=== PATIENT | female | born 1950 | race Caucasian/White ===

== ENCOUNTER 2017-05-10 11:47 | Day surgery (SDC) | payer OTHER ==
[~2017-05-10 11:47] MED LIST: 1-ME1LIQ PO; ACIDOPHILUS PO; AMBI10TA PO; ASPI81TA11 OR; BUPR150T3 PO; CLOP75 PO; CYCL-36 PO; EZET10 PO; HYDR-2768 PO; LEVO100T60 PO; LISI-363 PO; LOTR10CA PO; PERC10TA26 PO; PLAV75TA OR; PROT40TA PO; TRAZ100 PO; XANA0.5T PO
[2017-05-10] MEDS ORDERED: LEVE500T8 PO (12:41)
[2017-05-10] MEDS ORDERED: GABA300C5 PO (12:41)
[2017-05-10] MEDS ORDERED: LEVO100T5 PO (12:41)
[2017-05-10] MEDS ORDERED: NITR1SUB3 SL (12:41)
[2017-05-10] MEDS ORDERED: RANI1TAB5 PO (12:41)
[2017-05-10] MEDS ORDERED: CYCL10TA PO (12:41)
[2017-05-10] MEDS ORDERED: PANT40TA3 PO (12:41)
[2017-05-10] MEDS ORDERED: BUPR300T PO (12:41)
[2017-05-10] MEDS ORDERED: LISI30TA4 PO (12:41)
[2017-05-10] MEDS ORDERED: SERO100T PO (12:41)
[2017-05-10] MEDS ORDERED: ATOR20TA15 PO (12:41)
[2017-05-10] MEDS ORDERED: FLUO40CA PO (12:41)
[2017-05-10] MEDS ORDERED: ceFAZolin 2 GM PREMIX 50 ML IV SCH (13:30)
[2017-05-10] MEDS ORDERED: VANCOMYCIN 1000 MG/NS 250 ML IV SCH ×2 (13:30)
[2017-05-10] MEDS ORDERED: POVIDONE IODINE 5% (ANTISEPSIS KIT) 4 APPLICATIONS EACH NARE SCH (13:30)
[2017-05-10] MEDS ORDERED: MUPIROCIN 2% OINT 1 APPLIC/GM SYR NASAL SCH (13:30)
[2017-05-10] MEDS ORDERED: CHLORHEXIDINE GLUCONATE 2 % 1 PACK (2 CLOTHS) TOPICAL SCH (13:30)
[2017-05-10] MEDS ORDERED: MIDAZOLAM HCL 5 MG/ML VIAL (1 ML) ONE (14:46)
--- NOTE | 2017-05-14 08:08 | MP ---
cc: KAYLEIGH COUGHLIN M.D. DATE OF SURGERY 05/13/2017 INDICATIONS FOR PROCEDURE Mrs. So is a 66-year-old female with recurrent episodes of syncope, head trauma, fell in the bathroom. Neurological examination was negative, referred for loop recorder insertion. The risks, the nature and the benefit of the procedure are clearly stated to her. The risks include pneumothorax, infection and even . The patient understood and agreed to proceed. PROCEDURE After written informed consent was obtained, the patient was prepped in the usual sterile fashion. Conscious sedation was initiated and maintained throughout the procedure using intravenous Versed and Ventolin. Once sedation was verified, the left parasternal area was anesthetized with 2% Xylocaine. Using the cautery, less than a 1-cm incision was made. Then the loop was inserted under the skin. After adequate sensing obtained, the border was reapproximated using Dermabond and Steri-Strips. No incident reported. The patient tolerated the procedure, blood loss minimal. 1. IMPLANTED HARDWARE: The implanted loop recorder is a [employer] model number LNQ11, serial number [id number]. 2. SENSING: Sensing at 0.22 mV. 3. SETTINGS: The device set rupa under 40, tachy over 150. CONCLUSION Successful loop insertion. COMMENT AND RECOMMENDATIONS The patient is going to be transferred to the telemetry unit. He will be observed, can be discharged home later today. Kayleigh Coughlin MD HS/SSB /3:40 PM /7:58 AM
== END 2017-05-10 16:00 | disposition home or self-care (01) ==
LOC: HDOC 11:47 → HDIC 11:48 → HDOC 16:00
PROVIDERS: ATTEND Internal Medicine Interventional Cardiology
DX: R55 Syncope and collapse (principal); S09.90XA Unspecified injury of head, initial encounter; Y92.89 Other specified places as the place of occurrence of the external cause; I07.1 Rheumatic tricuspid insufficiency; I25.10 Atherosclerotic heart disease of native coronary artery without angina pectoris; I11.9 Hypertensive heart disease without heart failure; M79.7 Fibromyalgia; Z72.0 Tobacco use
CPT/HCPCS: 33282; 99152; C1764; J0690; J2250; J3010

== ENCOUNTER 2017-12-04 05:17 | Observation (INO) ==
--- NOTE | 2017-12-03 13:40 | MH ---
cc: Caesar Naqvi MD DATE OF ADMISSION: 12/04/2017 ADMITTING DIAGNOSIS: 1. Irreparable massive tear rotator cuff, right shoulder. 2. Rotator cuff arthropathy, right shoulder. PAST MEDICAL HISTORY: She is 2 back surgeries done in 2011. She had bilateral total knee replacements in 2007. She is on total disability for the past several years. Hysterectomy in 1984, heart stents. We have a recent cardiac evaluation, which has cleared her for surgery. The patient also suffers from anxiety and depression. She is also on chronic pain management. ALLERGIES: NO KNOWN ALLERGIES. PRESENT MEDICATIONS: She is on multiple medications, especially antidepressants and anticonvulsants. She is on levothyroxine and medications for GERD. HISTORY OF PRESENT ILLNESS: The patient saw me on 10/03/2017 complaining of a fall recently giving rise to pain in the right shoulder, but chart indicated that she was seen in December 2014 with a large tear of the rotator cuff of the right shoulder at that time and she was supposed to have surgery at that time, but she canceled. She now complains of pain and disability and loss of function in the right shoulder because of this. MRI scan done recently shows an irreparable large massive rotator cuff tear with some upward migration of the head of the humerus and the glenoid. Therefore, she is being now brought in for a reverse shoulder arthroplasty. The diagnosis, the treatment, the prognosis and the potential risks, complications, expected results, postoperative and post-hospital course have been discussed with her in detail. Informed consent has been obtained. No guarantees made. PHYSICAL EXAMINATION: GENERAL: Reveals a moderately overweight white female who smells of nicotine. She has been counseled several times about smoking cessation and diminution particularly in the postoperative period. HEENT: Head is normocephalic. Pupils are reacting to light. Face symmetrical. HEART: Regular rate and rhythm. No murmurs. LUNGS: Reveal shallow breath sounds, but no rhonchi. She is not short of breath. ABDOMEN: Soft. Bowel sounds positive. EXTREMITIES: Right shoulder reveals skin condition to be good. She is able to only flex and abduct about 40-50 degrees with a lot of discomfort. There is function in the deltoid. She has marked weakness to external rotation of the right shoulder against resistance. NEUROLOGIC: No neurovascular deficits in the right hand. Informed consent has been obtained. Details of the informed consent are recorded on the office record and will not be repeated here. MD SAMIRA Zabala/ruddy , 01:22 PM , 01:30 PM
[2017-12-04] MEDS ORDERED: Metoprolol Tartrate 25 MG Tablet PO SCH (05:45)
[2017-12-04] MEDS ORDERED: Chlorhexidine Gluconate 2% 1 Pack (2 Cloths) TOPICAL SCH (05:45)
[2017-12-04] MEDS ORDERED: Chlorhexidine 4% Topical 120 APPLIC/120 ML Bottle TOPICAL SCH (05:45)
[2017-12-04] MEDS ORDERED: ceFAZolin 2 GM Premix Inj 2 GM/100 ML BAG IV.SIG SCH (06:00)
[2017-12-04] MEDS ORDERED: Sodium Chlor 0.9% Inj 500 ML IV.SIG SCH (06:00)
[2017-12-04] MEDS ORDERED: Lidocaine PF 1% Inj 5 ML Vial ONE (06:16)
[2017-12-04] MEDS ORDERED: Bupivacaine PF 0.5% Inj 30 ML Vial ONE (06:16)
[2017-12-04] MEDS ORDERED: Sugammadex Inj 200 MG/2 ML Vial IV.PUSH ONE (06:51)
[2017-12-04] MEDS ORDERED: ceFAZolin 2 GM/NS 100 ML IV; Q8H IV.SIG SCH ×2 (08:00)
[2017-12-04] MEDS ORDERED: Vancomycin Inj 1,000 MG in Sodium Chlor 0.9% Inj 250 ML IV.SIG SCH (08:00)
[2017-12-04] MEDS: Vancomycin Inj 1,000 MG in Sodium Chlor 0.9% Inj 250 ML IV.SIG SCH ×2 (08:04→20:48)
[2017-12-04] MEDS ORDERED: LINACLOTIDE 72 MCG PO PRN (10:49)
[2017-12-04] MEDS ORDERED: Nitroglycerin SL (Override) 0.4 MG Tab SL PRN (10:49)
[2017-12-04] MEDS ORDERED: Post-op Orders (for Pharmacy) OTHER STA (10:51)
[2017-12-04] MEDS ORDERED: Morphine Inj 4 MG/ML Vial IV.PUSH PRN (10:51)
[2017-12-04] MEDS ORDERED: Aluminum/Magnesium/Simethacone Susp 30 ML UDC PO PRN (10:51)
[2017-12-04] MEDS ORDERED: Bisacodyl 10 MG Supp RECTAL PRN (10:51)
[2017-12-04] MEDS ORDERED: Acetaminophen Inj 650 MG/65 ML VIAL IV.SIG PRN (10:56)
[2017-12-04] MEDS ORDERED: levETIRAcetam 500 MG Tablet PO SCH (11:00)
[2017-12-04] MEDS ORDERED: buPROPion 150 MG 12 HR Tablet PO SCH (11:00)
[2017-12-04] MEDS ORDERED: fentaNYL Citrate Inj 100 MCG/2 ML Ampul ONE (11:06)
[2017-12-04] MEDS: Sod Chloride 0.9% Inj 1,000 ML IV.CONT SCH (12:00)
[2017-12-04] MEDS: Ketorolac Inj 30 MG/ML (IVP) Vial IV.PUSH SCH ×3 (12:00→23:15)
--- NOTE | 2017-12-04 12:13 | MP ---
cc: Caesar Naqvi MD DATE OF OPERATION: 12/04/2017 PREOPERATIVE DIAGNOSIS: Massive irreparable rotator cuff tear, right shoulder prior to rotator cuff arthropathy. POSTOPERATIVE DIAGNOSIS: Massive irreparable rotator cuff tear, right shoulder prior to rotator cuff arthropathy. OPERATIVE PROCEDURE: Reverse shoulder arthroplasty, right shoulder using a DJO components. We used a 32 mm -4 glenosphere and a 10 mm stem and a 4 mm semi-constrained insert. We used a standard DJO baseplate with 4 locking screws. SURGEON: Caesar Naqvi MD ANESTHESIA: General. TECHNIQUE: After induction of general anesthesia, the patient was placed in beachchair position taking great care to position the head and neck appropriately and also secure the lower extremities with her hips and knees flexed and well padded. Once the patient was secured on the operating table the right shoulder girdle and right upper extremity thoroughly prepped with alcohol and ChloraPrep and draped in routine fashion. Deltopectoral incision was made. Cephalic vein was identified and retracted laterally. The deltopectoral interval was exposed. Clavipectoral fascia was dissected. Short flexors were identified and retracted gently medially. Biceps tendon was still intact. It was identified and the sheath opened and the biceps tendon sectioned proximally and tenodesed to the pectoralis major tendon distally. Shoulder was externally rotated. The circumflex vessels were identified, clamped, and cauterized. Subscapularis was intact. The lesser tuberosity osteotomy was carried out with a small saw blade and then the joint exposed the subperiosteal dissection of the metaphysis of the femur was carried out, staying close to bone. A femoral head osteotomy was carried out using the osteotomy guide. Sufficient bone was removed. We now proceeded to expose the glenoid by the anterior inferior capsule from the subscapularis excising the glenoid labrum, releasing some of the posterior and inferior capsule close to bone, followed by introduction of a guidewire into the center of the glenoid. Measurements were carried out, followed by reaming following the technique of DJO. The baseplate was then screwed in place, getting excellent fixation. The baseplate is off the glenoid superiorly and slivers of bone graft placed underneath the baseplate. Four locking screws were placed. The glenosphere impacted in place and secured with a set screw. The humerus was now delivered from the wound and reaming and broaching carried out to a 10 mm broach, which fit very well. Proximal end reamed for the small cup. A cancellous bone graft was placed in the canal and impacted with the broach. Three drill holes were made and doubled #2 FiberWire passed through them and held. The 10 mm stem with the small proximal cup was then impacted and placed in satisfactory version. Small gaps were filled with cancellous bone around the sphere of the cup. A trial reduction was carried out with a standard 4 mm insert and positional stability were all good, but I felt it was better to put a semi-constrained. The joint was dislocated and the semi-constrained insert was impacted in place. Joint was irrigated with saline solution, followed by closure and checking of the range of motion, etc. There was no impingement anywhere. I was concerned about the prominence of the greater tuberosity just above the cup of the stem (we used the small cup) and a rongeur was used to take out some of the prominence, so there will be no impingement. We also made sure clinically that there was no impingement to abduction and flexion. She has good internal rotation. There was great stability. Wound was irrigated with saline solution, followed by reapproximation of the subscapularis with the #2 FiberWire sutures that had been previously placed through bone and the lesser tuberosity was placed on freshened bone and the sutures tied in a rack and hitch fashion. Deltoid closed with running #2-Quill, subcutaneous tissue with 2-0 Vicryl, skin with subcuticular Quill, and Dermabond and long-term dressings. Hemovac drain introduced in the submuscular space. Sling and Swathe applied. The patient was transferred to the recovery room in satisfactory condition. The patient tolerated the procedure well. COMPLICATIONS: None. POSTOPERATIVE CONDITION: Satisfactory. PROGNOSIS: Good. ESTIMATED BLOOD LOSS: 250 mL MD SAMIRA Zabala/xavier/betsy , 11:06 AM , 11:19 AM
--- NOTE | 2017-12-04 12:27 | XR ---
EXAM DATE: 12/04/2017 12:07 PM EDT AGE/SEX: 67 years / Female INDICATIONS: Post op right shoulder surgery CLINICAL DATA: This is the patient's initial encounter. Patient reports that signs and symptoms have been present for 1 day and indicates a pain score of 0/10. MEDICAL/SURGICAL HISTORY: None. None. COMPARISON: [facility], XR CHEST PA AND LAT, 11/19/2017. . FINDINGS: There is a right shoulder prosthesis in place. The glenohumeral component has a ball configuration. T he humeral component has a cup configuration This appears well placed. It is aligned. No acute fractu re is seen. CONCLUSION: Good placement of a right shoulder prosthesis. Electronically signed by: Mike Whittington MD 12/04/2017 12:26 PM EDT
[2017-12-04] MEDS: Gabapentin 300 MG Capsule PO SCH ×2 (12:58→19:23)
[2017-12-04] MEDS: sulfaSALAzine 500 MG Tablet PO SCH ×2 (12:59→19:23)
[2017-12-04] MEDS ORDERED: ceFAZolin 2 GM Premix Inj 2 GM/50 ML PIGGYBACK IV.SIG SCH (14:00)
[2017-12-04] MEDS ORDERED: Glycopyrrolate Inj 1 MG/5 ML Syringe IV.PUSH ONE (15:30)
[2017-12-04] MEDS ORDERED: Lidocaine PF 1% Inj 5 ML Syringe INFILTRATN ONE (15:30)
[2017-12-04] MEDS ORDERED: Phenylephrine/NS 1000 MCG/10ML Syringe IV.PUSH ONE (15:30)
[2017-12-04] MEDS: ceFAZolin Inj 2,000 MG in Sodium Chlor 0.9% Inj 80 ML IV.SIG SCH ×2 (15:43→20:48)
[2017-12-04] MEDS: levETIRAcetam 500 MG Tablet PO SCH ×2 (15:43→20:47)
[2017-12-04] MEDS: buPROPion 150 MG 12 HR Tablet PO SCH ×2 (15:45→20:47)
--- NOTE | 2017-12-04 18:13 | P.CON ---
History of Present Illness Service: [facility] Consult date: 12/04/17 Requesting Physician: Caesar Naqvi Reason for Consult: Medical management Primary Care Provider: No Primary Care Physician Family Provider: No Primary Care Physician Chief Complaint: "Right shoulder surgery" History of Present Illness: 67-year-old female with past medical history significant for seizure disorder, CAD, CKD, HTN, HLD, hypothyroidism, colitis, and TIA who presents to [facility] today for scheduled reverse shoulder arthroplasty. [facility] consulted to assist with medical management during her hospitalization. Patient is seen and examined resting in bed comfortably, appears to be in no acute distress. She denies any shortness of breath, cough, chest pain, nausea, vomiting, headaches, dizziness or pain at the current moment. Patient endorses some constipation, reports that she takes Linzess at home for her colitis however does not take this on a regular basis due to chronic diarrhea. Review of Systems All other systems reviewed negative except as stated in HPI PMFSH - History History Provided By: Patient - Medical History Medical History: Medical History (Last Reviewed 12/04/17 @ 17:54 by Brinda Calhoun) Arthritis Back pain Chest pain Chronic pain Colitis Coronary artery disease Depression Fibromyalgia GERD (gastroesophageal reflux disease) H/O: hysterectomy High cholesterol High triglycerides History of Clostridium difficile infection Hx of blood transfusion reaction Hypertension Hypothyroidism Joint pain Obstructive sleep apnea on CPAP Osteoarthritis Osteoporosis Seizure Snoring TIA (transient ischemic attack) - Surgical History Surgical History: Surgical History (Last Reviewed 12/04/17 @ 17:54 by Brinda Calhoun) H/O colonoscopy H/O tubal ligation History of cardiac cath History of cataract surgery History of heart artery stent History of lumbar laminectomy S/P lumbar fusion S/p total knee replacement, bilateral - Tobacco History Second Hand Smoke Exposure: Yes Tobacco Use In Past 30 Days: Yes Smoking Status: Current every day smoker Tobacco Type: Cigarettes - Alcohol History How Often Do You Have a Drink Containing Alcohol: Monthly or less - Substance Use History Substance History: No History of Abuse - Travel History Recent Travel in the [place] Within the Last 8 Weeks: No Recent Travel Out of the Country Within the Last 8 Weeks: No Medications and Allergies Active Medications: Active Medications Hydrocodone Bitart/Acetaminophen ([place] 5/325) 2 tab PO Q4H PRN PRN Reason: PAIN SCALE 5 TO 10 Al Hydrox/Mg Hydrox/Simethicone (Mag-Al Plus Susp Liq) 30 ml PO Q6H PRN PRN Reason: INDIGESTION Al Hydroxide/Mg Hydroxide (Milk Of Magnesia Liq) 30 ml PO BID PRN PRN Reason: Mild Constipation Aspirin (Aspirin) 325 mg PO DAILY [facility] Atorvastatin Calcium (Lipitor) 20 mg PO HS [facility] Bisacodyl (Dulcolax Supp) 10 mg RECTAL DAILY PRN PRN Reason: SEVERE CONSITIPATION Bupropion HCl (Wellbutrin Sr) 150 mg PO BID [facility] Last Admin: 12/04/17 15:45 Dose: Not Given Chlorhexidine Gluconate (Chlorhexidine 2% Cloth) 3 pack [employer] MARKETING MANAGER [facility] Stop: 12/07/17 05:42 Last Admin: 12/04/17 05:35 Dose: 3 pack Chlorhexidine Gluconate (Hibiclens 4% Topical) 1 applicatio TOPICAL ONCE [facility] Stop: 12/08/17 05:44 Last Admin: 12/04/17 07:19 Dose: Not Given Diphenhydramine HCl (Benadryl Inj) 25 mg IV.PUSH Q6H PRN PRN Reason: itching/rash Famotidine (Pepcid) 20 mg PO BID [facility] Gabapentin (Neurontin) 300 mg PO TID [facility] Last Admin: 12/04/17 12:58 Dose: 300 mg Lactated Ringer's (Lr 1000 Ml Inj) 1,000 mls @ 30 mls/hr IV.SIG .Q24H [facility] Stop: 12/07/17 05:42 Last Infusion: 12/04/17 08:26 Dose: Infused Sodium Chloride (Ns Inj) 500 mls @ 30 mls/hr IV.SIG .Q10H [facility] Stop: 12/07/17 05:42 Vancomycin HCl 1,000 mg/ (Sodium Chloride) 250 mls @ 250 mls/hr IV.SIG MARKETING MANAGER [facility] Stop: 12/07/17 05:46 Last Infusion: 12/04/17 10:08 Dose: Infused Sodium Chloride (Ns Inj) 1,000 mls @ 100 mls/hr IV.CONT .Q10H [facility] Last Admin: 12/04/17 12:00 Dose: 100 mls/hr Acetaminophen (Ofirmev Inj) 650 mg in 65 mls @ 400 mls/hr IV.SIG Q8HR PRN PRN Reason: PAIN SCALE 1 TO 10 Vancomycin HCl 1,000 mg/ (Sodium Chloride) 250 mls @ 200 mls/hr IV.SIG Q12H [facility] Stop: 12/05/17 09:14 Cefazolin Sodium 2,000 mg/ (Sodium Chloride) 100 mls @ 100 mls/hr IV.SIG Q6H [facility] Stop: 12/05/17 02:59 Last Infusion: 12/04/17 16:43 Dose: Infused Ketorolac Tromethamine (Toradol Inj) 15 mg IV.PUSH Q6H [facility] Stop: 12/06/17 05:01 Last Admin: 12/04/17 16:24 Dose: 15 mg Levetiracetam (Keppra) 500 mg PO Q12HR [facility] Last Admin: 12/04/17 15:43 Dose: 500 mg Levothyroxine Sodium (Synthroid) 100 mcg PO DAILY@0600 [facility] Lisinopril (Prinivil) 40 mg PO DAILY [facility] Metoprolol Tartrate (Lopressor) 25 mg PO MARKETING MANAGER [facility] Stop: 12/07/17 05:42 Last Admin: 12/04/17 06:34 Dose: Not Given Miscellaneous Information (Mis Nursing Information) 0 each OTHER UNSCH PRN PRN Reason: SEE DOSE INSTRUCTIONS Miscellaneous Information ([facility] Nursing Information) 1 each OTHER UNSCH PRN PRN Reason: SEE LABEL COMMENTS Stop: 12/05/17 11:02 Morphine Sulfate (Morphine Inj) 4 mg IV.PUSH Q3H PRN PRN Reason: BREAKTHROUGH PAIN Nitroglycerin (Nitrostat Sl (Override)) 0.4 mg SL Q5M PRN PRN Reason: Chest Pain Ondansetron HCl (Zofran Inj) 4 mg IV.PUSH Q6H PRN PRN Reason: NAUSEA OR VOMITING Pantoprazole Sodium (Protonix) 40 mg PO DAILY [facility] Patient Own Med - ( Linaclotide [Linzess ] 72 Mcg Tablet) 1 each PO DAILY PRN PRN Reason: Constipation Patient Own Medication - ( Vortioxetine [ Trintellix] 10 Mg) 1 each PO DAILY [facility] Povidone Iodine (Betadine 5% Antisepsis Kit) 1 applicatio EACH [employer] MARKETING MANAGER [facility] Stop: 12/07/17 05:42 Last Admin: 12/04/17 06:00 Dose: 1 applicatio Quetiapine Fumarate (Seroquel) 100 mg PO HS [facility] Senna/Docusate Sodium (My-Colace) 1 tab PO BID [facility] Sennosides (Senokot) 17.2 mg PO BID PRN PRN Reason: Moderate Constipation Sodium Chloride (Ns Flush) 2 ml IV.FLUSH PRN PRN PRN Reason: FLUSH AFTER USING IV ACCESS Sodium Chloride (Ns Flush) 2 ml IV.FLUSH BID [facility] Sulfasalazine (Azulfidine) 500 mg PO TID [facility] Last Admin: 12/04/17 12:59 Dose: 500 mg Allergies Allergy/AdvReac Type Severity Reaction Status Date / Time codeine AdvReac Severe Hallucinati Verified 12/04/17 06:06 ons Home Medications Medication Instructions Recorded Confirmed Type acetaminophen [Tylenol Extra 1,000 mg PO Q6H PRN 12/04/17 12/04/17 History Strength] atorvastatin 20 mg PO HS 12/04/17 12/04/17 History bupropion HCl 300 mg PO QAM 12/04/17 12/04/17 History cyclobenzaprine 10 mg PO TID 12/04/17 12/04/17 History gabapentin 300 mg PO TID 12/04/17 12/04/17 History levetiracetam [Keppra] 500 mg PO Q12H 12/04/17 12/04/17 History levothyroxine 100 mcg PO DAILY 12/04/17 12/04/17 History linaclotide [Linzess] 72 mcg PO DAILY PRN 12/04/17 12/04/17 History lisinopril 40 mg PO DAILY 12/04/17 12/04/17 History naproxen 500 mg PO BID 12/04/17 12/04/17 History nitroglycerin [Nitrostat] 0.4 mg SUBLINGUAL Q5-15M PRN 12/04/17 12/04/17 History pantoprazole [Protonix] 40 mg PO DAILY 12/04/17 12/04/17 History promethazine 25 mg PO Q6H PRN 12/04/17 12/04/17 History quetiapine [Seroquel] 100 mg PO HS 12/04/17 12/04/17 History ranitidine HCl 300 mg PO HS 12/04/17 12/04/17 History sulfasalazine [Azulfidine] 500 mg PO TID 12/04/17 12/04/17 History vortioxetine [Trintellix] 10 mg PO DAILY 12/04/17 12/04/17 History Physical Exam Vital signs: Vital Signs 12/04/17 06:21 12/04/17 11:00 12/04/17 11:15 Temperature 98.4 F 98 F Pulse Rate 63 96 H 79 Respiratory Rate 18 20 20 Blood Pressure 131/61 145/64 H 132/61 Pulse Oximetry 99 96 12/04/17 11:30 12/04/17 11:45 12/04/17 12:00 Temperature Pulse Rate 76 79 75 Respiratory Rate 20 16 16 Blood Pressure 124/53 L 115/64 115/64 Pulse Oximetry 97 97 98 12/04/17 12:15 12/04/17 13:00 12/04/17 13:38 Temperature 97.4 F L 98 F 97.6 F Pulse Rate 77 90 88 Respiratory Rate 16 16 18 Blood Pressure 119/59 L 109/57 L 133/69 Pulse Oximetry 96 99 12/04/17 16:00 Temperature 97.8 F Pulse Rate 89 Respiratory Rate 18 Blood Pressure 114/57 L Pulse Oximetry 96 Intake & Output 12/03/17 12/04/17 12/04/17 18:59 06:59 18:59 Intake Total 2680 / 2680 Output Total 550 / 550 Balance 2130 / 2130 Weight 103.5 kg 103.5 kg Intake: IV 1350 / 1350 LR 1000 mL Inj 1,000 ML @ 30 1000 / 1000 mls/hr IV.SIG .Q24H [facility] Rx#: [id number] Vancomycin Inj 1,000 MG In NS 250 / 250 Inj 250 ML @ 250 mls/hr IV.SIG MARKETING MANAGER [facility] Rx#:[id number] Ancef Inj 2,000 MG In NS Inj 80 100 / 100 ML @ 100 mls/hr IV.SIG Q6H [facility] Rx#:[id number] Oral 480 / 480 Anesthesia Amount 850 / 850 Output: Urine 300 / 300 Estimated Blood Loss 200 / 200 Wound Drainage 50 / 50 Right Shoulder Hemovac 50 / 50 Other: Weight On Admission 103.5 kg Narrative: GENERAL: Well-nourished, well-developed obese female resting in bed in no acute distress. SKIN: Warm and dry. HEAD: Atraumatic. Normocephalic. EYES: Pupils equal and round. No scleral icterus. No injection or drainage. ENT: No nasal bleeding or discharge. Mucous membranes pink and moist. NECK: Trachea midline. No JVD. CARDIOVASCULAR: Regular rate and rhythm. RESPIRATORY: No accessory muscle use. Clear to auscultation. Breath sounds equal bilaterally. GASTROINTESTINAL: Abdomen soft, non-tender, nondistended. Hypoactive bowel sounds. MUSCULOSKELETAL: Extremities without clubbing, cyanosis, or edema. No obvious deformities. Right shoulder dressing dry and intact, accordion drain with small amount of sanguinous drainage. NEUROLOGICAL: Awake and alert. No obvious cranial nerve deficits. Motor grossly within normal limits. Left arm range of motion limited secondary to recent surgery and sling. Normal speech. PSYCHIATRIC: Appropriate mood and affect; insight and judgment normal. Assessment and Plan - Plan 67-year-old female with past medical history significant for seizure disorder, CAD, CKD, HTN, HLD, hypothyroidism, colitis, and TIA who presents to [facility] today for scheduled reverse shoulder arthroplasty. [facility] consulted to assist with medical management during her hospitalization. Right shoulder rotator cuff tear -Status post reverse shoulder arthroplasty -PT/OT as recommended by orthopedics -Pain control with p.o. [place] -Recheck H&H in the morning Hypertension Hyperlipidemia Thyroidism -Continue home medications, continue monitoring BP and heart rate Seizure disorder -Continue home dose Keppra and gabapentin Colitis, chronic -Hold off on Linzess, encourage mobility and hydration to prevent constipation -Stool softeners if needed DVT prophylaxis-poor orthopedics, aspirin twice daily Thank you Dr. Naqvi for this consultation. We will continue to follow along.
[2017-12-04] MEDS: Senna/Docusate Sodium 8.6/50 MG Tablet PO SCH (20:47)
[2017-12-04] MEDS: Famotidine 20 MG Tablet PO SCH (20:47)
[2017-12-04] MEDS ORDERED: QUEtiapine 100 MG Tablet PO SCH (21:00)
[2017-12-05] MEDS: ceFAZolin Inj 2,000 MG in Sodium Chlor 0.9% Inj 80 ML IV.SIG SCH (02:05)
[2017-12-05] MEDS: Sod Chloride 0.9% Inj 1,000 ML IV.CONT SCH ×2 (03:28→08:21)
[2017-12-05] MEDS: Ketorolac Inj 30 MG/ML (IVP) Vial IV.PUSH SCH ×2 (05:33→11:47)
[2017-12-05] MEDS ORDERED: Levothyroxine 100 MCG Tablet PO SCH (06:00)
--- NOTE | 2017-12-05 08:42 | P.PN ---
Subjective Interval history: Follow-up visit for right reverse shoulder arthroplasty. Patient is seen and examined sitting up on the side of the bed eating breakfast this morning in no acute distress. She reports she has some pain in her right shoulder however tolerable. She denies any fevers, chills, nausea, vomiting, diarrhea, dysuria, shortness of breath or chest pain. Patient is concerned over the fact that she will be unable to use her right arm since she has right-handed. Physical Exam Vital signs: Vital Signs 12/04/17 11:00 12/04/17 11:15 12/04/17 11:30 Temperature 98 F Pulse Rate 96 H 79 76 Respiratory Rate 20 20 20 Blood Pressure 145/64 H 132/61 124/53 L Pulse Oximetry 96 97 12/04/17 11:45 12/04/17 12:00 12/04/17 12:15 Temperature 97.4 F L Pulse Rate 79 75 77 Respiratory Rate 16 16 16 Blood Pressure 115/64 115/64 119/59 L Pulse Oximetry 97 98 12/04/17 13:00 12/04/17 13:38 12/04/17 16:00 Temperature 98 F 97.6 F 97.8 F Pulse Rate 90 88 89 Respiratory Rate 16 18 18 Blood Pressure 109/57 L 133/69 114/57 L Pulse Oximetry 96 99 96 12/04/17 20:00 12/05/17 00:00 12/05/17 01:00 Temperature 97.8 F 97.9 F Pulse Rate 90 88 Respiratory Rate 18 17 16 Blood Pressure 131/61 133/60 Pulse Oximetry 96 95 12/05/17 04:00 12/05/17 06:30 Temperature 98.1 F Pulse Rate 73 Respiratory Rate 17 17 Blood Pressure 112/63 Pulse Oximetry 98 Intake & Output 12/04/17 12/05/17 12/05/17 18:59 06:59 18:59 Intake Total 3480 / 3480 100 / 100 1250 / 1250 Output Total 550 / 550 75 / 75 Balance 2930 / 2930 25 / 25 1250 / 1250 Weight 103.5 kg Intake: IV 1350 / 1350 100 / 100 1250 / 1250 NS Inj 1,000 ML @ 100 mls/hr IV 1000 / 1000 .CONT .Q10H [facility] Rx#:[id number] LR 1000 mL Inj 1,000 ML @ 30 1000 / 1000 mls/hr IV.SIG .Q24H [facility] Rx#: [id number] Vancomycin Inj 1,000 MG In NS 250 / 250 250 / 250 Inj 250 ML @ 200 mls/hr IV.SIG Q12H [facility] Rx#:[id number] Ancef Inj 2,000 MG In NS Inj 80 100 / 100 100 / 100 ML @ 100 mls/hr IV.SIG Q6H [facility] Rx#:[id number] Oral 1280 / 1280 Anesthesia Amount 850 / 850 Output: Urine 300 / 300 Estimated Blood Loss 200 / 200 Wound Drainage 50 / 50 75 / 75 Right Shoulder Hemovac 50 / 50 75 / 75 Other: # Voids 5 Date of Last Bowel Movement 11/30/17 11/30/17 Narrative: GENERAL: Well-nourished, well-developed obese female resting in bed in no acute distress. SKIN: Warm and dry. HEAD: Atraumatic. Normocephalic. EYES: Pupils equal and round. No scleral icterus or drainage. ENT: No nasal bleeding or discharge. Mucous membranes pink and moist. NECK: Trachea midline. CARDIOVASCULAR: Regular rate and rhythm. RESPIRATORY: No accessory muscle use. Clear to auscultation. Breath sounds equal bilaterally. GASTROINTESTINAL: Abdomen soft, non-tender, nondistended. Hypoactive bowel sounds. MUSCULOSKELETAL: Extremities without clubbing, cyanosis, or edema. No obvious deformities. Right shoulder dressing dry and intact, accordion drain with small amount of sanguinous drainage. NEUROLOGICAL: Awake and alert. No obvious cranial nerve deficits. Motor grossly within normal limits. Left arm range of motion limited secondary to recent surgery and sling. Normal speech. PSYCHIATRIC: Appropriate mood and affect; insight and judgment normal. Results - Imaging Impressions Shoulder X-Ray 12/04/17 00:00 CONCLUSION: Good placement of a right shoulder prosthesis. Assessment and Plan - Plan 67-year-old female with past medical history significant for seizure disorder, CAD, CKD, HTN, HLD, hypothyroidism, colitis, and TIA who presents to [facility] today for scheduled reverse shoulder arthroplasty. [facility] consulted to assist with medical management during her hospitalization. Right shoulder rotator cuff tear -Status post reverse shoulder arthroplasty -PT/OT as recommended by orthopedics -Pain control with p.o. [place], pain well controlled -Recheck H&H this a.m. Hypertension Hyperlipidemia Thyroidism -HR and BP stable Seizure disorder -Continue home dose Keppra and gabapentin Colitis, chronic -Hold off on Linzess, encourage mobility and hydration to prevent constipation -Stool softeners if needed DVT prophylaxis-poor orthopedics, aspirin twice daily
[2017-12-05] MEDS ORDERED: Lisinopril 20 MG Tablet PO SCH (09:00)
[2017-12-05] MEDS ORDERED: VORTIOXETINE 10 MG PO SCH (09:00)
[2017-12-05] MEDS ORDERED: Aspirin 325 MG Tablet PO SCH (09:00)
[2017-12-05] MEDS: buPROPion 150 MG 12 HR Tablet PO SCH (09:19)
[2017-12-05] MEDS: levETIRAcetam 500 MG Tablet PO SCH (09:19)
[2017-12-05] MEDS: Famotidine 20 MG Tablet PO SCH (09:19)
[2017-12-05] MEDS: Senna/Docusate Sodium 8.6/50 MG Tablet PO SCH (09:19)
[2017-12-05] MEDS: sulfaSALAzine 500 MG Tablet PO SCH ×2 (09:19→12:00)
[2017-12-05] MEDS: Gabapentin 300 MG Capsule PO SCH ×2 (09:19→12:00)
[2017-12-05] MEDS: Vancomycin Inj 1,000 MG in Sodium Chlor 0.9% Inj 250 ML IV.SIG SCH ×2 (09:19→09:32)
--- NOTE | 2017-12-05 10:37 | P.DCO ---
- Physical Therapy Physical Therapy: Safety evaluation - Occupational Therapy Right Upper Extremity Weight Bearing: Non-weight bearing Right Upper Extremity Range of Motion: Pendular Additional instructions: Start pendulum exercises saturday. Do AROM right elbow and hand No AROM shoulder till further notice Instruct patient to keep sling and swathe on properly and instruct on don/doff clothing - Nursing Nursing: Other (check primary dressing for problems. No change needed. OK to cover with [place]) - Certification Need for Home Health services: I have seen patient Era So on 12/05/17. My clinical findings support the need for the requested home health care services because: Need for Home Health Services: Limited ability to care for self Homebound Certification: I certify that my clinical findings support that this patient is homebound because: Homebound Certification: Unsafe to leave home unassisted, Unable to use public transportation
--- NOTE | 2017-12-05 10:43 | P.PNOP ---
Subjective Interval history: no complaints. C?O citculation right leg Physical Exam Vital signs: Vital Signs 12/04/17 11:00 12/04/17 11:15 12/04/17 11:30 Temperature 98 F Pulse Rate 96 H 79 76 Respiratory Rate 20 20 20 Blood Pressure 145/64 H 132/61 124/53 L Pulse Oximetry 96 97 12/04/17 11:45 12/04/17 12:00 12/04/17 12:15 Temperature 97.4 F L Pulse Rate 79 75 77 Respiratory Rate 16 16 16 Blood Pressure 115/64 115/64 119/59 L Pulse Oximetry 97 98 12/04/17 13:00 12/04/17 13:38 12/04/17 16:00 Temperature 98 F 97.6 F 97.8 F Pulse Rate 90 88 89 Respiratory Rate 16 18 18 Blood Pressure 109/57 L 133/69 114/57 L Pulse Oximetry 96 99 96 12/04/17 20:00 12/05/17 00:00 12/05/17 01:00 Temperature 97.8 F 97.9 F Pulse Rate 90 88 Respiratory Rate 18 17 16 Blood Pressure 131/61 133/60 Pulse Oximetry 96 95 12/05/17 04:00 12/05/17 06:30 Temperature 98.1 F Pulse Rate 73 Respiratory Rate 17 17 Blood Pressure 112/63 Pulse Oximetry 98 Intake & Output 12/04/17 12/05/17 12/05/17 18:59 06:59 18:59 Intake Total 3480 / 3480 100 / 100 1500 / 1500 Output Total 550 / 550 75 / 75 Balance 2930 / 2930 25 / 25 1500 / 1500 Weight 103.5 kg Intake: IV 1350 / 1350 100 / 100 1500 / 1500 NS Inj 1,000 ML @ 100 mls/hr IV 1000 / 1000 .CONT .Q10H [facility] Rx#:[id number] LR 1000 mL Inj 1,000 ML @ 30 1000 / 1000 mls/hr IV.SIG .Q24H [facility] Rx#: [id number] Vancomycin Inj 1,000 MG In NS 250 / 250 500 / 500 Inj 250 ML @ 250 mls/hr IV.SIG [employer] [facility] Rx#:[id number] Ancef Inj 2,000 MG In NS Inj 80 100 / 100 100 / 100 ML @ 100 mls/hr IV.SIG Q6H [facility] Rx#:[id number] Oral 1280 / 1280 Anesthesia Amount 850 / 850 Output: Urine 300 / 300 Estimated Blood Loss 200 / 200 Wound Drainage 50 / 50 75 / 75 Right Shoulder Hemovac 50 / 50 75 / 75 Other: # Voids 5 Date of Last Bowel Movement 11/30/17 11/30/17 Narrative: A,A, and O Dressings clean and dry. Drain in S and S around neck Patient and RN instructed on proper use of S & S . i adjusted it Moves elbow and hand well but weak because of nerve block Results - Imaging Impressions Shoulder X-Ray 12/04/17 00:00 CONCLUSION: Good placement of a right shoulder prosthesis. Assessment and Plan - Ortho Post Op Day # 1 - Assessment and Plan Doing well posrtop DC with [facility] discussed in detail. Activity restrictions and to keep S & S on properly all discussed. DC med HC 5/325, 2 qid prn pain # 56 Aspirin EC 325 mg one daily # 30 To see me Dec 10, COFA. alternative of SNF discussed. she can discuss with further with DC retail planner. Preference however is HH. DC this afternoon
== END 2017-12-05 15:31 | disposition home health service (06) ==
LOC: N06 05:17 → HSDC 05:17 → EDSTATUS 07:30
PROVIDERS: ADMIT Orthopaedic Surgery; ATTEND Orthopaedic Surgery